=== PATIENT | male | born 1945 | race Caucasian/White ===

== ENCOUNTER 2020-11-09 08:55 | Day surgery (SDC) | payer OTHER, MEDICARE ==
--- NOTE | 2020-11-04 14:44 | RAD REPORT ---
EXAM DESCRIPTION: Eleonora Lin And Tramaine (2 Views)11/04/2020 2:30 pm CLINICAL HISTORY: Preop cardiac catheterization. Hypertension COMPARISON: 2014 FINDINGS: The lungs appear clear of acute infiltrate. The heart is mildly enlarged. Pacemaker leads are in place. IMPRESSION: No acute abnormalities displayed
[2020-11-04 14:53] LABS: Absolute Lymphocytes (CBC) 1.5 K/uL (0.7-4.9); Hematocrit 41.3 % (39.6-49.0); Lymphocytes % 22.6 % (15.3-44.8); MPV 8.1 fL (7.6-11.3); RBC Red Blood Cell Count 4.52 M/uL (4.33-5.43)
[2020-11-04 15:00] LABS: Protime INR 0.89
[2020-11-04 15:06] LABS: Potassium 4.6 mmol/L (3.5-5.1)
[2020-11-09] MEDS ORDERED: NA CHLORIDE 0.9% 500 ML ONE (09:21)
[2020-11-09] MEDS ORDERED: HEPA 1000U/500MLS 1,000 UNIT/500 ML BAG IV ONE (09:37)
[2020-11-09] MEDS ORDERED: LIDOCAINE 1% 20 ML MDV ONE (09:37)
[2020-11-09] MEDS ORDERED: ATROPINE SULF 1 MG/10 ML SYR IV ONE (09:40)
[2020-11-09] MEDS ORDERED: NA CHLORIDE 0.9% 0 ML ONE (09:41)
[2020-11-09] MEDS ORDERED: FENTANYL CITR 100 MCG/2 ML ONE (10:00)
[2020-11-09] MEDS ORDERED: MIDAZOLAM HCL 2 MG/2 ML INJ ONE (10:00)
--- NOTE | 2020-11-09 11:26 | OP ---
Surgeon: Rylan Brown MD Manufacturing Controller: Mr. Frederick Mesa. The patient will remain at bedrest for 2 hours after the procedure. He will go home and I will see h im in the office in the next 2 weeks. Procedure: Admitted as an outpatient on 11/09/2020 for a left heart catheterization and selective co ronary arteriogram. Indication: Mr. Lee is a 74-year-old white male. Has had a history of hypertension, dyslipidem ia, peripheral arterial disease, status post right common iliac artery stent years ago, comes into [facility] office with unstable angina. Procedure In Detail: Brought to the carpenter/labor today as an outpatient, prepped and draped in the routi ne sterile fashion. The patient declined any sedation. A 6-Frisian sheath introduced in the right co mmon femoral artery successfully. Angiography there was normal. Angio-Seal was used to close the ca se. Baljeet catheter left and right were used to do the heart catheterization. He was found to have normal left main, normal LAD, normal circumflex, normal RCA. He was left dominant. The RCA was sma ll and normal. There were no complications. Blood Loss: 5 mL. Postoperative Diagnosis: Chest pain, normal coronaries. Plan: Plan is for medical therapy. BO/HEENA Voice ID: [id number] Report ID: [id number]
[2020-11-09 11:41] VITALS: TEMP 96.9
[2020-11-09 13:14] VITALS: O2SAT 95
[2020-11-09 13:15] VITALS: BP 144/74
== END 2020-11-09 13:00 | disposition home or self-care (01) ==
LOC: CCL 08:55
DX: R07.9 Chest pain, unspecified (principal); I48.0 Paroxysmal atrial fibrillation; I65.23 Occlusion and stenosis of bilateral carotid arteries; I73.9 Peripheral vascular disease, unspecified; I10 Essential (primary) hypertension; E78.5 Hyperlipidemia, unspecified; Z95.0 Presence of cardiac pacemaker; Z87.891 Personal history of nicotine dependence; Z20.822 Contact with and (suspected) exposure to COVID-19
CPT/HCPCS: 85025; 80048; 36415; 85610; 85730; 71046; 93454; U0003; C1893; C1760; J7040; J1644; J0583; J2250; J3010